=== PATIENT | female | born 1955 | race American Indian/Alaskan Native ===

== ENCOUNTER 2017-04-04 09:40 | Day surgery (SDC) | payer OTHER ==
--- NOTE | 2017-04-04 10:39 | Anesthesia Consultation ---
Anesthesia Consult and Med Hx Date of service: 04/04/17 - Airway Anesthetic Teeth Evaluation: Good ROM Head & Neck: Adequate Mental/Hyoid Distance: Adequate Mallampati Class: Class I Intubation Access Assessment: Probably Good - Pulmonary Exam CTA: Yes - Cardiac Exam Cardiac Exam: RRR - Pre-Operative Health Status ASA Pre-Surgery Classification: ASA2 Proposed Anesthetic Plan: MAC - Pulmonary Hx Smoking: Yes (7-8 cigaretts/day)
--- NOTE | 2017-04-04 10:39 | Anesthesia Day of Surgery ---
Anesthesia Day of Surgery - Day of Surgery Patient Examined: Yes Patient H&P Reviewed: Yes Patient is NPO: Yes
[2017-04-04] MEDS ORDERED: WATER FOR IRRIG STERILE ONE (10:43)
[2017-04-04] MEDS ORDERED: XYLOCAINE MPF 2% ONE (10:47)
[2017-04-04] MEDS ORDERED: NACL 0.9% 1000 ML 1,000 ML IV SCH (11:00)
[2017-04-04] MEDS ORDERED: DIPRIVAN 10 MG/ML IV ONE ×2 (11:37)
--- NOTE | 2017-04-04 12:25 | Post Anesthesia Evaluation ---
- Post Anesthesia Evaluation Patient Participated: Yes Airway Patent: Yes Stable Respiratory Function: Yes Nausea/Vomiting: No Temp > 96.8F: Yes Pain Manageable: Yes Adequeate Hydration: Yes Anesthesia Complications: No Block Receding Appropriately: Not Applicable Patient on Ventilator: No
[2017-04-04 12:42] VITALS: BP 164/76
--- NOTE | 2017-04-04 12:42 | Operative Report ---
Operative Report Operative Report: Date of procedure: 04/04/2017 Procedure: Colonoscopy hot biopsy polypectomy and ablation. Attending physician: Syd Toledo MD Roller Leveler: Syd Toledo MD Indication: Patient is a 62-year-old female who presented for colorectal cancer screening. Her last colonoscopy was 10 years ago. Consent: Informed consent was obtained after advising the patient and family regarding nature of this procedure, its indications, potential benefits as well as possible complications including but not limited to bleeding perforation and adverse reaction to medication, infection as well as other cardiopulmonary complications. An informed written and verbal consent was then obtained after due opportunity was provided for questions and answers. Monitoring: Patient was monitored continuously with pulse oximetry and electrocardiographic recordings as well as blood pressure recordings. Vital signs remained stable throughout this procedure with no untoward events. Preoperative assessment: Patient was assessed immediately prior to this procedure for capacity to tolerate monitored anesthesia care and moderate sedation as well as general anesthesia. Patient's ASA classification is 2, Mallampati class is 2, Hyomental distance is 3. Instrument: Udorsen video colonoscope. Medications: Propofol, given intravenously in divided doses for details please refer to anesthesia records. Description of procedure: Patient was placed in the left lateral decubitus position after achieving sedation, a digital rectal examination was performed following which the colonoscope was introduced into the anal verge and advanced to the cecum which was identified by the cecal valve, the appendiceal orifice, as well as by the cecal strap and direct transillumination. The colonoscope was subsequently withdrawn with careful inspection of all mucosal surfaces. Patient tolerated this procedure well and was subsequently taken to the recovery room. The following findings were noted. Findings: Patient had multiple diminutive polyps in the sigmoid colon. The largest measured approximately 8 mm the smallest measured approximate 4 mm. There were also additional diminutive diminutive flat polyps measuring approximately 3 mm. All polyps removed biopsy polypectomy. The smaller sigmoid polyps were ablated. There was scattered diverticula in the sigmoid colon descending colon and also in the ascending colon. There was 3 diminutive 3 mm flat polyps seen in the rectum which were ablated. On the retroflex view at the anal verge patient had internal hemorrhoids. The rest of the colon was normal. Impression: Multiple sigmoid colon polyp status post ablation. Multiple sigmoid colon polyp status post hot biopsy polypectomy. Multiple rectal polyp status post ablation. Colonic diverticulosis. Internal hemorrhoids. Plan: Follow pathology report High-fiber diet. Consider repeat colonoscopy in 2-3 years because of multiple polyps the polyps are adenomatous.
--- NOTE | 2017-04-04 12:43 | Discharge Summary ---
Short Stay Discharge Plan Activity: advance as tolerated Weight Bearing Status: Weight Bear as Tolerated Diet: regular Additional Instructions: Post Sedation D/C Instructions When you return home you may resume your regular diet unless otherwise directed. -Go directly home from the hospital and rest quietly . You may resume normal activities tomorrow. -Do NOT drive, return to work, operate any machinery or make any important personal or business decisions today. -Do NOT drink any alcohol or take nerve or sleeping drugs. They add to the effects of the medicine still present in your body. Follow up with: MASHA SEGOVIA DO [Primary Care Provider] - 7 Days
== END 2017-04-04 09:41 | disposition home or self-care (01) ==
LOC: GIO 09:40
PROVIDERS: ATTEND Internal Medicine Gastroenterology
DX: Z12.11 Encounter for screening for malignant neoplasm of colon (principal); K63.5 Polyp of colon; K57.30 Diverticulosis of large intestine without perforation or abscess without bleeding; K62.1 Rectal polyp; K64.8 Other hemorrhoids; F17.210 Nicotine dependence, cigarettes, uncomplicated; Z72.89 Other problems related to lifestyle
CPT/HCPCS: 45384; 45388; 88305; J2704; J7030

== ENCOUNTER 2022-02-04 14:55 | Emergency (ER) | payer MEDICARE, OTHER ==
[2022-02-04 16:38] VITALS: BP 106/59
[2022-02-04] MEDS ORDERED: predniSONE 20 MG TAB PO ONE (18:12)
[2022-02-04] MEDS ORDERED: IBUPROFEN 600 MG TAB PO ONE (18:12)
[2022-02-04 19:25] LABS: Bacteria,Urine 1+ /HPF (Negative); Bilirubin,Urine NEG (Negative); Blood,Urine NEG (Negative); Color,Urine Straw (Yellow); Mucus,Urine FEW /HPF; Protein,Urine <15 mg/dL mg/dL (Negative); RBC,Urine < 1.0 /HPF (0.0-6.0); Urobilinogen,Urine < 2.0 mg/dL (<2.0)
--- NOTE | 2022-02-04 19:56 | Emergency Department Report ---
ED Back Pain/Injury HPI - General Chief Complaint: Back Pain/Injury Stated Complaint: UPPER BACK PAIN Source: patient Limitations: No Limitations - History of Present Illness Initial Comments: Patient is a 67-year-old -[place] female with past medical history of hypertension who presents to the ED with complaint of acute onset persistent nontraumatic low back pain for the last 2 days. Patient states that the pain is especially worse with any movement. Patient states that she has not taken any medications prior to arrival in the ED. Patient denies hematuria, dysuria, urinary frequency and urgency, abdominal pain, numbness and tingling or weakness of lower extremities bilaterally, vaginal bleeding, heavy lifting, fall, chest pain or shortness of breath, fever and chills. MD Complaint: back pain, other (lower) -: Sudden, days(s) (2) Similar Symptoms Previously: No Place: home Radiation: none Severity: severe Severity scale (0 -10): 8 Quality: sharp, aching Consistency: constant Improves With: none Worsens With: movement, walking Context: while lifting, turning/twisting Associated Symptoms: denies other symptoms. denies: weakness, chest pain, numbness, difficulty walking, cough, difficulty urinating, diaphoresis, incontinence, constipation, headaches, abdominal pain, malaise, nausea/vomiting, rash, seizure, shortness of breath, syncope - Related Data Previous Rx's Medication Instructions Recorded Last Taken Type Naproxen 500 mg PO Q12H PRN #30 tab 02/04/22 Unknown Rx methOCARBAMOL [Robaxin TAB] 750 mg PO Q8H PRN #30 tab 02/04/22 Unknown Rx traMADoL [Ultram] 50 mg PO Q6HR PRN #10 tablet 02/04/22 Unknown Rx Allergies Allergy/AdvReac Type Severity Reaction Status Date / Time No Known Allergies Allergy Verified 04/04/17 10:10 ED Review of Systems ROS: Stated complaint: UPPER BACK PAIN Other details as noted in HPI Constitutional: denies: chills, fever Eyes: denies: eye pain, eye discharge, vision change ENT: denies: ear pain, throat pain Respiratory: denies: cough, shortness of breath, wheezing Cardiovascular: denies: chest pain, palpitations Endocrine: no symptoms reported Gastrointestinal: denies: abdominal pain, nausea, diarrhea Genitourinary: denies: urgency, dysuria, discharge Musculoskeletal: back pain (Low back pain). denies: joint swelling, arthralgia Skin: denies: rash, lesions Neurological: denies: headache, weakness, paresthesias Psychiatric: denies: anxiety, depression Hematological/Lymphatic: denies: easy bleeding, easy bruising ED Past Medical Hx - Surgical History Hx Appendectomy: Yes - Social History Smoking Status: Current Every Day Smoker - Medications Home Medications: Home Medications Medication Instructions Recorded Confirmed Last Taken Type Naproxen 500 mg PO Q12H PRN #30 tab 02/04/22 Unknown Rx methOCARBAMOL [Robaxin TAB] 750 mg PO Q8H PRN #30 tab 02/04/22 Unknown Rx traMADoL [Ultram] 50 mg PO Q6HR PRN #10 tablet 02/04/22 Unknown Rx ED Physical Exam - General Limitations: No Limitations General appearance: alert, in no apparent distress - Head Head exam: Present: atraumatic, normocephalic, normal inspection - Eye Eye exam: Present: normal appearance, PERRL, EOMI Pupils: Present: normal accommodation - ENT ENT exam: Present: normal exam, normal orophraynx, mucous membranes moist, TM's normal bilaterally, normal external ear exam - Neck Neck exam: Present: normal inspection, full ROM. Absent: tenderness - Respiratory Respiratory exam: Present: normal lung sounds bilaterally. Absent: respiratory distress, wheezes, chest wall tenderness, accessory muscle use, decreased breath sounds - Cardiovascular Cardiovascular Exam: Present: regular rate, normal rhythm, normal heart sounds. Absent: systolic murmur, diastolic murmur, rubs, gallop - GI/Abdominal GI/Abdominal exam: Present: soft, normal bowel sounds. Absent: tenderness, guarding, rebound, hyperactive bowel sounds, hypoactive bowel sounds, organomegaly - Extremities Exam Extremities exam: Present: normal inspection, full ROM, normal capillary refill. Absent: tenderness - Back Exam Back exam: Present: normal inspection, full ROM, tenderness (Palpable lumbosacral paraspinal musculoskeletal tenderness), muscle spasm, paraspinal tenderness. Absent: CVA tenderness (R), CVA tenderness (L), vertebral tenderness - Neurological Exam Neurological exam: Present: alert, oriented X3, CN II-XII intact, normal gait, reflexes normal - Psychiatric Psychiatric exam: Present: normal affect, normal mood - Skin Skin exam: Present: warm, dry, intact, normal color. Absent: rash ED Course Vital Signs 02/04/22 16:35 Temperature 98.0 F Pulse Rate 65 Respiratory 18 Rate Blood Pressure 106/59 [Right] O2 Sat by Pulse 100 Oximetry ED Medical Decision Making - Medical Decision Making This is a 67-year-old -[place] female with past medical history of hypertension who presents to the ED with complaint of acute onset persistent nontraumatic low back pain for the last 2 days. Patient states that the pain is especially worse with any movement. Patient states that she has not taken any medications prior to arrival in the ED. In the ED, patient is alert and oriented x3 and is not in any distress. Urinalysis is unremarkable. Patient was treated for pain in the ED. On reevaluation, patient's pain is well controlled medication. Based on the history and physical exam findings, the p atient symptoms are likely musculoskeletal. Patient was therefore discharged home on medications for pain and muscle relaxants and advised to follow-up with her primary care physician in 7 to 10 days for reevaluation. Patient advised return to the ED immediately if symptoms get worse. - Differential Diagnosis Muscle spasm; muscle strain; UTI Critical care attestation.: If time is entered above; I have spent that time in minutes in the direct care of this critically ill patient, excluding procedure time. ED Disposition Clinical Impression: Spasm of muscle of lower back, Strain of muscle, fascia and tendon of lower back, initial encounter Acute low back pain without sciatica Qualifiers: Back pain laterality: bilateral Qualified Code(s): M54.50 - Low back pain, unspecified Disposition: 01 HOME / SELF CARE / HOMELESS Is pt being admited?: No Does the pt Need Aspirin: No Condition: Stable Instructions: Muscle Cramps and Spasms, [id number], Muscle Strain, [id number], Low Back Sprain or Strain Rehab-SportsMed Additional Instructions: Urinalysis is unremarkable. Therefore your symptoms are likely musculoskeletal due to muscle strain and muscle spasm. Therefore take medications with food, drink plenty of fluids and follow-up with your primary care physician in 5 to 7 days for reevaluation. Return to the ED immediately if symptoms get worse Prescriptions: Naproxen 500 mg PO Q12H PRN #30 tab PRN Reason: Pain , Severe (7-10) methOCARBAMOL [Robaxin TAB] 750 mg PO Q8H PRN #30 tab PRN Reason: Muscle Spasm traMADoL [Ultram] 50 mg PO Q6HR PRN #10 tablet PRN Reason: Pain Referrals: [facility] [Provider Group] - 7-10 days Time of Disposition: 19:57 Print Language: BENGALI
== END 2022-02-04 20:22 | disposition home or self-care (01) ==
LOC: ED 14:55
DX: S39.012A Strain of muscle, fascia and tendon of lower back, initial encounter (principal); M62.830 Muscle spasm of back; M54.40 Lumbago with sciatica, unspecified side; Z98.890 Other specified postprocedural states; F17.200 Nicotine dependence, unspecified, uncomplicated; X58.XXXA Exposure to other specified factors, initial encounter; Y93.89 Activity, other specified; Y92.89 Other specified places as the place of occurrence of the external cause; Y99.8 Other external cause status
CPT/HCPCS: 81001; 99283